=== PATIENT | female | born 1930 | race Caucasian/White ===

== ENCOUNTER 2016-11-15 12:38 | Outpatient (CLI) | payer MEDICARE | END 2016-11-15 12:39 | disposition home or self-care (01) | LOC: DI 12:38 | PROVIDERS: ATTEND Registered Nurse | DX: R01.1 Cardiac murmur, unspecified (principal); I51.7 Cardiomegaly | CPT/HCPCS: 93306 ==

== ENCOUNTER 2017-06-08 06:54 | Outpatient (CLI) | payer MEDICARE | END 2017-06-08 06:55 | disposition critical access hospital (66) | LOC: EMS 06:54 | PROVIDERS: ATTEND Surgery | DX: R51 Headache (principal); M54.9 Dorsalgia, unspecified; R11.2 Nausea with vomiting, unspecified | CPT/HCPCS: A0425; A0429 ==

== ENCOUNTER 2017-06-08 07:20 | Emergency (ER) | payer MEDICARE ==
--- NOTE | 2017-06-08 07:38 | ED Physician Documentation ---
PD HPI HEADACHE - Stated complaint Stated Complaint: LOWRY - Chief complaint Chief Complaint: Neuro - History obtained from History obtained from: Patient, Family, EMS - History of Present Illness Timing - onset: How many months ago (1) Timing - onset during: Rest Timing - duration: Months (1) Timing - details: Gradual onset, Still present, Waxing and waning Location: Front, Right Quality: Throbbing Associated symptoms: Nausea, Vomiting. No: Fever, Stiff neck, Weakness, Numbness, Syncope, Seizure Improved by: Rest Similar symptoms before: Has not had sx before Recently seen: Clinic - Additional information Additional information: 87-year-old female with a history of hypertension and advancing dementia has developed a headache beginning about a month ago that she has had with intermittent symptoms over the right frontal parietal area. She has had some vomiting with this starting today. She brought into the emergency department by her daughter. Review of Systems Constitutional: denies: Fever Eyes: denies: Decreased vision Ears: denies: Ear pain Nose: denies: Rhinorrhea / runny nose, Congestion Throat: denies: Sore throat Cardiac: denies: Chest pain / pressure, Palpitations Respiratory: denies: Dyspnea, Cough GI: reports: Nausea, Vomiting : denies: Dysuria, Frequency Skin: denies: Rash Musculoskeletal: reports: Back pain. denies: Neck pain, Extremity pain Neurologic: reports: Confused, Headache. denies: Generalized weakness, Focal weakness, Head injury PD PAST MEDICAL HISTORY - Past Medical History Past Medical History: Yes Cardiovascular: Hypertension, High cholesterol Neuro: Dementia, CVA HEENT: Glaucoma, Macular degeneration Psych: Depression Musculoskeletal: Osteoarthritis - Past Surgical History Past Surgical History: Yes Ortho: Knee replacement HEENT: Cataracts - Present Medications Home Medications: Ambulatory Orders Medication Instructions Recorded Confirmed ALPRAZolam [Alprazolam] 06/08/17 Aspirin 06/08/17 Atenolol 100 mg PO DAILY 06/08/17 Baclofen 10 mg PO TID PRN 06/08/17 Brinzolamide 1% Ophth Drops [Azopt 06/08/17 1% Ophth Drops] Latanoprost 06/08/17 Losartan Potassium 50 mg PO BID 06/08/17 Omeprazole 06/08/17 Oxycodone HCl/Acetaminophen PRN 06/08/17 [Oxycodon-Acetaminophen 2.5-325] Sertraline HCl 50 mg PO DAILY 06/08/17 Timolol [Betimol] 06/08/17 amLODIPine [Norvasc] 5 mg PO DAILY 06/08/17 carBAMazepine [TEGretol] 100 mg PO BID #40 tablet 06/08/17 - Allergies Allergies/Adverse Reactions: Allergies Allergy/AdvReac Type Severity Reaction Status Date / Time No Known Drug Allergies Allergy Verified 06/08/17 07:32 - Social History Does the pt smoke?: No Smoking Status: Never smoker PD ED PE NORMAL - Vitals Vital signs reviewed: Yes (tachy and hypertensive) - General General: No acute distress, Well developed/nourished - HEENT HEENT: Atraumatic, PERRL, EOMI - Neck Neck: Supple, no meningeal sign, No bony TTP - Cardiac Cardiac: RRR, No murmur - Respiratory Respiratory: No respiratory distress, Clear bilaterally - Abdomen Abdomen: Soft, Non tender - Back Back: No CVA TTP, No spinal TTP, Other (there is paraspinous muscle tenderness to the left paraspinous muscles at L3. ) - Derm Derm: Normal color, Warm and dry, No rash - Extremities Extremities: No deformity, No edema - Neuro Neuro: No motor deficit, No sensory deficit, Normal speech Eye Opening: Spontaneous Motor: Obeys Commands Verbal: Confused GCS Score: 14 - Psych Psych: Normal mood, Normal affect Results - Vitals Vitals: Vital Signs - 24 hr 06/08/17 07:21 Temperature 36.8 C Heart Rate 113 H Respiratory 18 Rate Blood Pressure 205/112 H O2 Saturation 93 Oxygen O2 Source Room air - Labs Labs: Laboratory Tests 06/08/17 06/08/17 06/08/17 07:30 07:30 07:30 WBC 11.4 H RBC 5.17 Hgb 15.5 Hct 45.8 MCV 88.7 MCH 30.0 MCHC 33.8 RDW 14.1 Plt Count 304 MPV 7.9 Neut # 9.7 H Lymph # 1.1 L [place]aines # 0.5 Eos # 0.0 Baso # 0.1 Absolute Nucleated RBC 0.00 Nucleated RBC % 0.0 Sodium 135 Potassium 4.1 Chloride 100 L Carbon Dioxide 23 Anion Gap 12.0 BUN 17 Creatinine 0.8 Estimated GFR (MDRD) 68 L Glucose 158 H Calcium 9.7 Total Bilirubin 0.6 AST 23 ALT 15 Alkaline Phosphatase 80 Troponin I < 0.04 Total Protein 8.2 Albumin 4.9 Globulin 3.3 Albumin/Globulin Ratio 1.5 Lipase 24 Urine Color Urine Clarity Urine pH Ur Specific [place] Urine Protein Urine Glucose (UA) Urine Ketones Urine Occult Blood Urine Nitrite Urine Bilirubin Urine Urobilinogen Ur Leukocyte Esterase Ur Microscopic Review Urine Culture Comments 06/08/17 09:50 WBC RBC Hgb Hct MCV MCH MCHC RDW Plt Count MPV Neut # Lymph # [place] # Eos # Baso # Absolute Nucleated RBC Nucleated RBC % Sodium Potassium Chloride Carbon Dioxide Anion Gap BUN Creatinine Estimated GFR (MDRD) Glucose Calcium Total Bilirubin AST ALT Alkaline Phosphatase Troponin I Total Protein Albumin Globulin Albumin/Globulin Ratio Lipase Urine Color YELLOW Urine Clarity CLEAR Urine pH 7.5 Ur Specific [place] 1.020 Urine Protein NEGATIVE Urine Glucose (UA) NEGATIVE Urine Ketones NEGATIVE Urine Occult Blood NEGATIVE Urine Nitrite NEGATIVE Urine Bilirubin NEGATIVE Urine Urobilinogen 0.2 (NORMAL) Ur Leukocyte Esterase NEGATIVE Ur Microscopic Review NOT INDICATED Urine Culture Comments NOT INDICATED - Rads (name of study) CT head without Radiology: Prelim report reviewed (Impression: 1. No acute intracranial abnormality is identified. 2. Parenchymal volume loss and chronic white matter changes.), EMP read indepedently, See rad report PD MEDICAL DECISION MAKING - ED course Complexity details: reviewed old records, reviewed results, re-evaluated patient , considered differential, d/w patient, d/w family ED course: 87-year-old female with headache intermittently since December of last year has spikes of pain and background headache. This is been much worse over the past 4 days. She is brought in by her family and they note that she has been taking some of her pain medication which she takes very infrequently. She has been prescribed 10 hills of hydrocodone in the middle of April and has 4 left in the bottle. She has become somewhat withdrawn today and is brought into the hospital by her family with this persistent headache. She is found to be dehydrated on interrogation the inferior vena cava and she is administered intravenous fluids. She does have a spike of headache and here in the emergency department and we are able to confirm that the headache is resolved a few minutes later. The patient has progressive dementia and is a poor historian. Getting the history of the timing of details is difficult but we are present at the bedside the patient complains of headache she asked for some medicine for pain this is delayed and when asked again she states the pain is much better but she has always a background pain. We have made the diagnosis of trigeminal neuralgia and we will start empirically a trial of Tegretol. She is hydrated here in the emergency department. Departure - Departure Disposition: 01 Home, Self Care Clinical Impression: Trigeminal neuralgia Condition: Stable Instructions: ED Neuralgia Trigeminal Follow-Up: Melvina Laguna ARNP [Primary Care Provider] - Prescriptions: carBAMazepine [TEGretol] 100 mg PO BID #40 tablet
[2017-06-08 07:44] LABS: BASOPHILS # (AUTO) 0.1 10^3/uL (0.0-0.1); BASOPHILS % (AUTO) 0.9 %; EOSINOPHILS % (AUTO) 0.1 %; HGB - HEMOGLOBIN 15.5 g/dL (12.0-16.0); LYMPHOCYTES # (AUTO) 1.1 10^3/uL (1.5-3.5); LYMPHOCYTES % (AUTO) 9.7 %; MEAN CORPUSCULAR HGB CONC 33.8 g/dL (32.0-36.0); MEAN CORPUSCULAR VOLUME 88.7 fL (81.0-99.0); MEAN PLATELET VOLUME 7.9 fL (7.9-10.8); MONOCYTES # (AUTO) 0.5 10^3/uL (0.0-1.0); MONOCYTES % (AUTO) 4.3 %; NEUTROPHILS # (AUTO) 9.7 10^3/uL (1.5-6.6); PLT - PLATELET COUNT 304 10^3/uL (130-450); RED BLOOD COUNT 5.17 10^6/uL (4.20-5.40); RED CELL DISTRIBUTION WIDTH 14.1 % (12.0-15.0); WHITE BLOOD COUNT 11.4 x10^3/uL (4.8-10.8)
[2017-06-08] MEDS: SODIUM CHLORIDE 0.9% 1,000 ML IV ONE ×2 (07:44→09:42)
[2017-06-08 07:50] LABS: ALBUMIN 4.9 g/dL (3.2-5.5); ALBUMIN/GLOBULIN RATIO 1.5 (1.0-2.2); BILIRUBIN,TOTAL 0.6 mg/dL (0.2-1.0); CALCIUM 9.7 mg/dL (8.5-10.3); CREATININE 0.8 mg/dL (0.4-1.0); TOTAL PROTEIN 8.2 g/dL (6.7-8.2)
--- NOTE | 2017-06-08 08:18 | CT Report ---
EXAM: CT HEAD EXAM DATE: 06/08/2017 07:51 AM. CLINICAL HISTORY: Right sided headache and vomiting. COMPARISON: 03/29/2012. 01/22/2009. TECHNIQUE: Multiaxial CT images were obtained from the foramen magnum to the vertex. Reformats: Coron al. IV contrast: None. In accordance with CT protocol optimization, one or more of the following dose reduction techniques w ere utilized for this exam: automated exposure control, adjustment of mA and/or KV based on patient s ize, or use of iterative reconstructive technique. FINDINGS: Parenchyma: Parenchymal volume loss with periventricular regions of low-attenuation. No evidence of a n acute vascular insult or acute parenchymal hemorrhage. No midline shift. No mass effect. Extraaxial Spaces: Mildly prominent. No subdural or epidural collections identified. Ventricles: Mildly prominent although symmetric. No hydrocephalus. Sinuses and Orbits: Imaged paranasal sinuses, orbits, and mastoids show no significant abnormality. Bones: No evidence of fracture or calvarial defect. Other: Changes are seen from bilateral lens surgery. Vascular calcifications are noted. IMPRESSION: 1. No acute intracranial abnormality is identified. 2. Parenchymal volume loss and chronic white matter changes. [facility] Referring Provider Line: [phone] SITE ID: [id number]
[2017-06-08] MEDS: ATENOLOL 25 MG TABLET PO STA (08:19)
[2017-06-08 10:23] LABS: BILIRUBIN,URINE NEGATIVE (NEGATIVE); GLUCOSE, URINE (UA) NEGATIVE (NEGATIVE); KETONES,URINE (UA) NEGATIVE (NEGATIVE); LEUKOCYTE ESTERASE, URINE NEGATIVE (NEGATIVE); NITRITE,URINE NEGATIVE (NEGATIVE); OCCULT BLOOD,URINE NEGATIVE (NEGATIVE); PH,URINE 7.5 PH (5.0-7.5); PROTEIN,URINE NEGATIVE (NEGATIVE); UROBILINOGEN,URINE 0.2 (NORMAL) E.U./dL (NORMAL)
[2017-06-08 10:26] LABS: CLARITY,URINE CLEAR (CLEAR)
[2017-06-08] MEDS: ONDANSETRON 4 MG/2 ML VIAL IVP STA (10:37)
[2017-06-08] MEDS: DEXAMETHASONE 10 MG/ML VIAL PO STA (11:27)
[2017-06-08 11:31] VITALS: BP 110/84
== END 2017-06-08 11:32 | disposition home or self-care (01) ==
LOC: EDUNIT# → ED 07:20
DX: G50.0 Trigeminal neuralgia (principal); I10 Essential (primary) hypertension; F03.90 Unspecified dementia, unspecified severity, without behavioral disturbance, psychotic disturbance, mood disturbance, and anxiety; E78.00 Pure hypercholesterolemia, unspecified; Z96.659 Presence of unspecified artificial knee joint
CPT/HCPCS: 36415; 70450; 80053; 81003; 83690; 84484; 85025; 96360; 96361; 99284; A9270; 81001; 87086

== ENCOUNTER 2019-07-27 11:48 | Outpatient (CLI) | payer MEDICARE ==
--- NOTE | 2019-07-27 14:22 | XRAY Report ---
PROCEDURE: Foot 3 View LT INDICATIONS: M25.572 PAIN IN LEFT FOOT AND ANKLE TECHNIQUE: 3 views of the foot were acquired. COMPARISON: Concurrent study of the left ankle. FINDINGS: Bones: There is a mildly displaced spiral fracture of the 5th metatarsal shaft. No dislocation.There is mild degeneration of the 1st metatarsophalangeal joint. Soft tissues: There is soft tissue swelling laterally in the forefoot. Achilles tendon appears intac t. IMPRESSION: 1. Mildly displaced fracture of the 5th metatarsal shaft. Reviewed by: Cristopher Jenkins MD on 07/27/2019 2:21 PM PDT Approved by: Cristopher Jenkins MD on 07/27/2019 2:21 PM PDT Station ID: [id number]
--- NOTE | 2019-07-27 16:36 | XRAY Report ---
PROCEDURE: Ankle 3 View LT INDICATIONS: LT ANKLE PAIN TECHNIQUE: 3 views of the ankle were acquired. COMPARISON: X-ray foot 07/26/2019 FINDINGS: Bones: Fifth metacarpal shaft fracture is incompletely visualized. Ankle mortise is normally aligned. No suspicious bony lesions. Soft tissues: No tibiotalar joint effusion. Achilles tendon appears normal. IMPRESSION: Fifth metacarpal shaft fracture. Please see x-ray foot report of 07/26/2019 for further d etails. Reviewed by: Shanika Lares MD on 07/27/2019 4:35 PM PDT Approved by: Shanika Lares MD on 07/27/2019 4:35 PM PDT Station ID: [id number]
== END 2019-07-27 11:49 | disposition home or self-care (01) ==
LOC: DI.S 11:48
PROVIDERS: ATTEND Nurse Practitioner Family
DX: S92.352A Displaced fracture of fifth metatarsal bone, left foot, initial encounter for closed fracture (principal); M19.072 Primary osteoarthritis, left ankle and foot

== ENCOUNTER 2019-11-09 13:15 | Outpatient (CLI) | payer MEDICARE | END 2019-11-09 13:16 | disposition home or self-care (01) | LOC: LAB.S 13:15 | PROVIDERS: ATTEND Registered Nurse | DX: M25.519 Pain in unspecified shoulder (principal) | CPT/HCPCS: 36415; 85651; 86140 ==